=== PATIENT | male | born 1985 | race Two or more races ===

== ENCOUNTER 2019-05-22 02:32 | Emergency (ER) | payer SELFPAY ==
[~2019-05-22] VITALS: Ht 170.2 cm; Wt 74.8 kg
[2019-05-22] MEDS ORDERED: TDAP [DIPH/PERTUSSIS/TET] 0.5 ML VIAL IM ONE ×2 (03:00→06:25)
[2019-05-22] MEDS ORDERED: CEFTRIAXONE 1 G VIAL IM ONE (03:00)
[2019-05-22] MEDS ORDERED: LIDOCAINE 1%-EPI 1:100,000 20 ML VIAL TP ONE (03:00)
[2019-05-22] MEDS ORDERED: HALOPERIDOL LACTATE INJ 5 MG/ML VIAL IM ONE ×2 (03:00→04:00)
[2019-05-22] MEDS ORDERED: SODIUM BICARBONATE 5 ML VIAL MC ONE (03:00)
--- NOTE | 2019-05-22 03:02 | NUR ---
pt verbally aggressive towards staff. pt approaching staff in agressive behavior. dr amador at bedside speaking with patient.
[2019-05-22] MEDS ORDERED: HALOPERIDOL LACTATE INJ 5 MG/ML VIAL ONE ×3 (03:09→04:01)
[2019-05-22 03:41] LABS: BASOPHILS # (AUTO) 0.1 /CMM (0.0-0.2); BASOPHILS % (AUTO) 0.7 % (0.0-2.0); EOSINOPHILS % (AUTO) 0.4 % (0.0-6.0); HEMATOCRIT 50 % (39-51); HEMOGLOBIN 17.3 g/dL (13.5-17.5); LYMPHOCYTES # (AUTO) 2.1 /CMM (0.8-4.8); LYMPHOCYTES % (AUTO) 14.8 % (20.0-44.0); MEAN CORPUSCULAR HGB CONC 35 g/dl (31.0-36.0); MEAN CORPUSCULAR VOLUME 97 fL (80-96); MONOCYTES # (AUTO) 1.1 /CMM (0.1-1.30); MONOCYTES % (AUTO) 7.6 % (2.0-12.0); NEUTROPHILS # (AUTO) 10.6 /CMM (1.8-8.9); NEUTROPHILS % (AUTO) 76.5 % (43.0-81.0); PLATELET COUNT (AUTO) 217 /CMM (150-450); RED BLOOD CELL COUNT(AUTO) 5.18 MIL/uL (4.5-6.0); WHITE BLOOD COUNT (AUTO) 13.9 K/uL (4.3-11.0)
[2019-05-22 03:45] LABS: CREATININE 0.9 mg/dL (0.6-1.3)
[2019-05-22 03:53] LABS: ALBUMIN 4.7 g/dL (3.4-5.0); BILIRUBIN,TOTAL 0.3 mg/dL (0.2-1.0)
[2019-05-22] MEDS ORDERED: CEFTRIAXONE 1 G VIAL ONE (06:25)
--- NOTE | 2019-05-22 08:30 | NUR ---
Ekta mccall in ED - 05/22/19 at 1138 by JEAN MARIE KEYSHAWN CORTÉSW CALLED FOR PSYCH CLEARANCE PER ORDER
--- NOTE | 2019-05-22 08:56 | NUR ---
PATIENT ASLEEP, EASILY AROUSABLE. NO DISTRESS NOTED. SITTER AT BEDSIDE.
--- NOTE | 2019-05-22 14:16 | NUR ---
PT AWAKE, AMBULATORY W/ STEADY GAIT. [id number] CALLED HER GIRLFRIEND TO PICK HIM UP. STATES READY TO GO HOME AND WILL WAIT IN ED WAITING ROOM. VSS. D/C HOME IN STABLE CONDITION.
[2019-05-22 14:26] VITALS: BP 132/80
== END 2019-05-22 14:27 | disposition home or self-care (01) ==
LOC: ER 02:38
DX: S01.412A Laceration without foreign body of left cheek and temporomandibular area, initial encounter (principal); F10.129 Alcohol abuse with intoxication, unspecified; Z60.2 Problems related to living alone; Y04.0XXA Assault by unarmed brawl or fight, initial encounter; Y93.89 Activity, other specified; Y92.89 Other specified places as the place of occurrence of the external cause; Y99.8 Other external cause status; Y90.8 Blood alcohol level of 240 mg/100 ml or more
CPT/HCPCS: 12011; 36415; 70450; 70486; 72125; 80053; 80307; 85025; 85610; 90471; 90715; 96372 ×2; 99284; J0696; J1630 ×3; G0480